=== PATIENT | female | born 1940 | race Caucasian/White ===

== ENCOUNTER 2017-05-02 07:47 | Day surgery (SDC) | payer MEDICARE, BC ==
[~2017-05-02 07:47] MED LIST: Lidocaine 1% with EPINEPHrine 1:100,000 50 ML MDV ONE; Sodium Tetradecyl Sulfate 1% 20 MG/2 ML SDV ONE
[2017-05-02] MEDS ORDERED: fentaNYL 100 MCG/2 ML SDV ONE (08:06)
[2017-05-02] MEDS ORDERED: Midazolam 1 MG/ML 2 ML SDV ONE (08:06)
[2017-05-02] MEDS ORDERED: Propofol 200 MG/20 ML SDV ONE ×2 (08:06→10:31)
[2017-05-02] MEDS ORDERED: Sodium Chloride 0.9% 1,000 ML IV SCH (08:45)
[2017-05-02] MEDS ORDERED: Lidocaine 1% w/EPINEPHrine 50 ML, Sodium Bicarbonate 5 MEQ in Sodium Chloride 0.9% 950 ML INJECT ONE (10:00)
[2017-05-02] MEDS ORDERED: Sodium Chloride 0.9% 10 ML ONE (10:30)
[2017-05-02] MEDS ORDERED: Sodium Chloride 0.9% 10 ML SDV ONE (10:32)
[2017-05-02 11:57] VITALS: BP 172/83
--- NOTE | 2017-05-03 09:05 | OR ---
DATE OF PROCEDURE: 05/02/2017 PROCEDURE: Colonoscopy. FINDINGS: Diverticulosis noted throughout the entire colon, mostly concentrated in the sigmoid colon. PREOPERATIVE DIAGNOSIS: Diverticulosis. POSTOPERATIVE DIAGNOSIS: Diverticulosis. RISKS: Risks, benefits, alternatives, limitations including, but not limited to infection, bleeding, and perforation were explained to the patient and wished to proceed. PROCEDURE IN DETAIL: The patient was placed in left lateral decubitus position. Digital rectal exam was performed without abnormality. The scope was introduced and advanced atraumatically to the ileocecal valve. The scope was brought back to the ascending, transverse, descending colon, and retroflexed. The patient had diverticulosis of the colon, but there was a dense area noted in the sigmoid colon, and this was marked with ink. No abnormalities on retroflexion. The patient tolerated the procedure well. Hugo Real MD /[id number]
== END 2017-05-02 12:05 | disposition home or self-care (01) ==
LOC: JP.SDS 07:47
PROVIDERS: ATTEND Surgery
DX: K57.30 Diverticulosis of large intestine without perforation or abscess without bleeding (principal); I10 Essential (primary) hypertension; E78.5 Hyperlipidemia, unspecified; Z88.8 Allergy status to other drugs, medicaments and biological substances
CPT/HCPCS: 45378; J1642; J2250; J2704; J3010; J7040; J7050

== ENCOUNTER 2022-01-10 14:22 | Emergency (ER) | payer BC, MEDICARE ==
[2022-01-10] MEDS ORDERED: Diphtheria,Pertussis(Acell),Tetanus Vaccine 0.5 ML Syringe IM ONE (15:09)
[2022-01-10] MEDS ORDERED: Lidocaine 1% 5 ML VIAL INJECT ONE (16:36)
[2022-01-10 17:07] VITALS: BP 158/71; PULSE 63
== END 2022-01-10 17:30 | disposition home or self-care (01) ==
LOC: JP.ED 14:22
DX: S68.112A Complete traumatic metacarpophalangeal amputation of right middle finger, initial encounter (principal); S68.114A Complete traumatic metacarpophalangeal amputation of right ring finger, initial encounter; E78.00 Pure hypercholesterolemia, unspecified; I10 Essential (primary) hypertension; Z88.8 Allergy status to other drugs, medicaments and biological substances; Z79.899 Other long term (current) drug therapy; Z23 Encounter for immunization; W22.09XA Striking against other stationary object, initial encounter
CPT/HCPCS: 73140-26-F7; 73140-26-F8; 73140-F7; 73140-F8; 90471; 90715; 99283; 99283-25